=== PATIENT | female | born 1945 | race Caucasian/White ===

== ENCOUNTER 2021-01-23 12:52 | Outpatient (CLI) | payer MEDICARE, BC | END 2021-01-23 12:53 | disposition home or self-care (01) | LOC: TBSIIMAG 12:52 | PROVIDERS: ATTEND Orthopaedic Surgery | DX: M54.2 Cervicalgia (principal); M54.6 Pain in thoracic spine; M46.54 Other infective spondylopathies, thoracic region; M47.814 Spondylosis without myelopathy or radiculopathy, thoracic region; M51.34 Other intervertebral disc degeneration, thoracic region; M47.812 Spondylosis without myelopathy or radiculopathy, cervical region | CPT/HCPCS: 72141; 72146 ==

== ENCOUNTER 2021-11-02 09:52 | Outpatient (CLI) | payer MEDICARE, BC ==
[2021-11-03 00:06] LABS: SARS-CoV-2 PCR by NAA Not Detected (NotDetected)
== END 2021-11-02 09:53 | disposition home or self-care (01) ==
LOC: LABBT 09:52
PROVIDERS: ATTEND Ophthalmology Retina Specialist
DX: H43.11 Vitreous hemorrhage, right eye (principal); H54.7 Unspecified visual loss; Z20.822 Contact with and (suspected) exposure to COVID-19
CPT/HCPCS: U0003; U0005

== ENCOUNTER 2021-11-03 06:52 | Day surgery (SDC) | payer MEDICARE, BC ==
[2021-10-30 13:31] VITALS: BMI 39.0
[~2021-11-03 06:52] MED LIST: EPINEPHrine 0.3 MG in Ophthalmic Irrigation Solution 500 ML IRR SCH; Fentanyl 250 MCG/5 ML VIAL ONE; Midazolam HCl 2 mg/2 ml Vial ONE; PROPOFOL 20 ML ONE
[2021-11-03] MEDS ORDERED: Cyclopentolate 1% Opth Drop 2 ML BOT ONE (07:01)
[2021-11-03] MEDS ORDERED: Phenylephrine 2.5% Ophth Soln 5 ML BOT ONE (07:01)
[2021-11-03] MEDS ORDERED: Lidocaine 4% PF 5 ML AMP ONE (07:44)
[2021-11-03] MEDS ORDERED: Triamcinolone 40 MG/ML VIAL ONE (07:44)
[2021-11-03] MEDS ORDERED: Lidocaine 1% PF 5 ML VIAL ONE (07:44)
[2021-11-03] MEDS ORDERED: CEFAZOLIN 1 GM VIAL ONE (07:44)
[2021-11-03] MEDS ORDERED: Bupivacaine 0.75% 10 ML VIAL ONE (07:44)
[2021-11-03] MEDS ORDERED: Maxitrol 0.1% Opth Oint 3.5 GM TUBE ONE (07:44)
[2021-11-03] MEDS ORDERED: PROPOFOL 200 MG/20 ML VIAL ONE (07:44)
== END 2021-11-03 09:15 | disposition home or self-care (01) ==
LOC: SDC 06:52
PROVIDERS: ATTEND Ophthalmology Retina Specialist
PROC: 08T43ZZ Resection of Right Vitreous, Percutaneous Approach (ICD-10-PCS; principal; 2021-11-03)
PROC: 08QE3ZZ Repair Right Retina, Percutaneous Approach (ICD-10-PCS; 2021-11-03)
DX: H43.11 Vitreous hemorrhage, right eye (principal); Z79.4 Long term (current) use of insulin; Z79.899 Other long term (current) drug therapy; Z88.8 Allergy status to other drugs, medicaments and biological substances
CPT/HCPCS: 36416; J0171; J0690; J2250; J2704; J3010; J3301; J3490